=== PATIENT | female | born 1985 | race Caucasian/White ===

== ENCOUNTER 2016-12-03 12:44 | Emergency (ER) | payer SELFPAY ==
--- NOTE | 2016-12-03 13:29 | ER Document Report ---
ED Medical Screen (RME) - General Stated Complaint: BODY PAIN Notes: Patient complains of body aches, coughing, sneezing, and fever since Friday night. States her symptoms only occur at night. She denies sore throat, denies history of asthma. Patient denies nausea, vomiting or diarrhea. I have greeted and performed a rapid initial assessment of this patient. A comprehensive ED assessment and evaluation of the patient, analysis of test results and completion of the medical decision making process will be conducted by additional ED providers. TRAVEL OUTSIDE OF THE [place] IN LAST 30 DAYS: No - Related Data Allergies/Adverse Reactions: No Known Allergies Allergy (Verified 12/03/16 13:26) Past Medical History Psychiatric Medical History: Reports: Hx Depression - Immunizations Hx Diphtheria, Pertussis, Tetanus Vaccination: Yes Physical Exam - Vital signs Vitals: Temp Pulse Resp BP Pulse Ox 98.6 F 86 20 108/65 100 12/03/16 13:23 12/03/16 13:23 12/03/16 13:23 12/03/16 13:23 12/03/16 13:23 - Respiratory Respiratory status: No respiratory distress Breath sounds: Normal Course - Vital Signs Vital signs: Temp Pulse Resp BP Pulse Ox 98.6 F 86 20 108/65 100 12/03/16 13:23 12/03/16 13:23 12/03/16 13:23 12/03/16 13:23 12/03/16 13:23
--- NOTE | 2016-12-03 15:08 | ER Document Report ---
ED Flu Like - General Chief Complaint: Flu Symptoms Stated Complaint: BODY PAIN Time seen by provider: 15:02 Mode of Arrival: Ambulatory Information source: Patient Notes: 31-year-old female no medical problems presents to the emergency room with cough , congestion, muscle aches and pains, sneezing and low-grade fever. Patient has been seen having symptoms for the last few days. TRAVEL OUTSIDE OF THE [place] IN LAST 30 DAYS: No - HPI Onset: Last week Timing/Duration: Constant Quality of pain: No pain Severity: None Pain Level: Denies CO exposure: No Associated symptoms: Nonproductive cough, Fever. denies: Earache, Shortness of breath Similar symptoms previously: No Recently seen / treated by doctor: No - Related Data Allergies/Adverse Reactions: No Known Allergies Allergy (Verified 12/03/16 13:26) Past Medical History - General Information source: Patient - Social History Smoking Status: Never Smoker Cigarette use (# per day): No Chew tobacco use (# tins/day): No Frequency of alcohol use: Occasional Drug Abuse: None Lives with: Family Family History: Reviewed & Not Pertinent Patient has suicidal ideation: No Patient has homicidal ideation: No - Medical History Medical History: Negative Renal/ Medical History: Denies: Hx Peritoneal Dialysis Psychiatric Medical History: Reports: Hx Depression Surgical Hx: Other - Noncontributory - Immunizations Hx Diphtheria, Pertussis, Tetanus Vaccination: Yes Review of Systems - Review of Systems Notes: Review of systems: Constitutional: Positive for fever, chills, muscle aches EENT: Denies ear pain, sinus tenderness, throat pain, throat swelling. Cardiovascular: Denies chest pain, palpitations, dyspnea or edema. Respiratory: See H&P Abdomen: Denies abdominal pain, nausea, vomiting, diarrhea. Denies BRBPR or melena. Genitourinary: Denies dysuria, pyuria, hematuria, flank pain. Musculoskeletal: See H&P Neurologic: Denies headache, photophobia, neck stiffness, weakness. Denies loss of bowel or bladder function. Denies saddle anesthesia. Skin: Denies rash, lesions. Physical Exam - Vital signs Vitals: Temp Pulse Resp BP Pulse Ox 98.6 F 86 20 108/65 100 12/03/16 13:23 12/03/16 13:23 12/03/16 13:23 12/03/16 13:23 12/03/16 13:23 Notes: Physical exam: GENERAL: 81-year-old female, alert and oriented 3, no acute distress. HEAD: Atraumatic, normocephalic. EYES: Pupils equal round and reactive to light, extraocular movements intact, sclera anicteric, conjunctiva are normal. ENT: TMs normal, nares patent, oropharynx clear without exudates, she does have prominent tonsils but there is no erythema or exudates. She is not having any pain in her throat. Moist mucous membranes. NECK: Normal range of motion, supple without lymphadenopathy or JVD. LUNGS: Breath sounds clear to auscultation bilaterally and equal. No wheezes rales or rhonchi. HEART: Regular rate and rhythm without murmurs, rubs or gallops. ABDOMEN: Soft, normoactive bowel sounds. No tenderness to palpation. No guarding, no rebound. No masses appreciated. EXTREMITIES: Normal range of motion, no pitting or edema. No clubbing or cyanosis. NEUROLOGICAL: Cranial nerves II through XII grossly intact. Normal speech, normal gait. PSYCH: Normal mood, normal affect. SKIN: Warm, Dry, normal turgor, no rashes or lesions noted. Course - Vital Signs Vital signs: Temp Pulse Resp BP Pulse Ox 98.9 F 80 18 110/65 100 12/03/16 15:30 12/03/16 15:30 12/03/16 15:30 12/03/16 15:30 12/03/16 15:30 Discharge - Discharge Clinical Impression: influenza Condition: Stable Disposition: HOME, SELF-CARE Instructions: Acetaminophen Additional Instructions: Your test was positive for influenza B Influenza is a virus and the treatment is supportive. This means plenty of rest , drink plenty of fluids, Tylenol and Advil are okay. To keep the sinuses clear, I'll recommend simply saline twice daily for the next week. Mucinex to keep the secretions thin so that the sinuses will drain completely to allow them to heal. Return to the emergency room for any shortness of breath, worsening pain or any concerns he getting worse. Forms: Return to Work
[2016-12-03 15:47] VITALS: BP 110/65
== END 2016-12-03 15:30 | disposition home or self-care (01) ==
LOC: ER 12:44
DX: J11.1 Influenza due to unidentified influenza virus with other respiratory manifestations (principal); R05 Cough; M79.1 Myalgia; R50.9 Fever, unspecified; R06.7 Sneezing
CPT/HCPCS: 87804; 99283

== ENCOUNTER 2017-05-13 10:14 | Emergency (ER) | payer SELFPAY ==
[2017-05-13] MEDS ORDERED: IPRATROPIUM/ALBUTEROL 0.5-2.5 MG/3 ML AMPUL NEB ONE ×3 (10:53→12:07)
--- NOTE | 2017-05-13 11:20 | ER Document Report ---
ED General - General Chief Complaint: Chest Congestion Stated Complaint: COUGH Time Seen by Provider: 05/13/17 10:49 Mode of Arrival: Ambulatory Information source: Patient Notes: 31-year-old female presents with complaints of 2 week duration of cough productive with wheezing shortness of breath. Patient denies a history of asthma or COPD. Notes intermittent fevers. Patient notes symptoms have not improved with [id number] medication. TRAVEL OUTSIDE OF THE [place] IN LAST 30 DAYS: No - HPI Onset: Other Onset/Duration: Persistent, Worse Quality of pain: No pain Severity: Mild Pain Level: 1 Associated symptoms: Productive cough, Shortness of breath Exacerbated by: Walking, Coughing, Deep breathing Relieved by: Denies Similar symptoms previously: No Recently seen / treated by doctor: No - Related Data Allergies/Adverse Reactions: No Known Allergies Allergy (Verified 05/13/17 10:29) Past Medical History - Social History Smoking Status: Never Smoker Cigarette use (# per day): No Chew tobacco use (# tins/day): No Smoking Education Provided: No Family History: Reviewed & Not Pertinent Patient has suicidal ideation: No Renal/ Medical History: Denies: Hx Peritoneal Dialysis Psychiatric Medical History: Reports: Hx Depression - Immunizations Hx Diphtheria, Pertussis, Tetanus Vaccination: Yes Review of Systems - Review of Systems Notes: REVIEW OF SYSTEMS: CONSTITUTIONAL : Denies fever, chills, or sweats. Denies recent illness. EENT: Denies eye, ear, throat, or mouth pain or symptoms. Denies nasal or sinus congestion or discharge. Denies throat, tongue, or mouth swelling or difficulty swallowing. CARDIOVASCULAR: Denies chest pain. Denies palpitations or racing or irregular heart beat. Denies ankle edema. RESPIRATORY: Admits to productive cough shortness of breath GASTROINTESTINAL: Denies abdominal pain or distention. Denies nausea, vomiting , or diarrhea. Denies blood in vomitus, stools, or per rectum. Denies black, tarry stools. Denies constipation. GENITOURINARY: Denies difficulty urinating, painful urination, burning, frequency, blood in urine, or discharge. FEMALE GENITOURINARY: Denies vaginal bleeding, heavy or abnormal periods, irregular periods. Denies vaginal discharge or odor. MUSCULOSKELETAL: Denies back or neck pain or stiffness. Denies joint pain or swelling. SKIN: Denies rash, lesions or sores. HEMATOLOGIC : Denies easy bruising or bleeding. LYMPHATIC: Denies swollen, enlarged glands. NEUROLOGICAL: Denies confusion or altered mental status. Denies passing out or loss of consciousness. Denies dizziness or lightheadedness. Denies headache. Denies weakness or paralysis or loss of use of either side. Denies problems with gait or speech. Denies sensory loss, numbness, or tingling. Denies seizures. PSYCHIATRIC: Denies anxiety or stress. Denies depression, suicidal ideation, or homicidal ideation. ALL OTHER SYSTEMS REVIEWED AND NEGATIVE. PHYSICAL EXAMINATION: GENERAL: Well-appearing, well-nourished and in no acute distress. HEAD: Atraumatic, normocephalic. EYES: Pupils equal round and reactive to light, extraocular movements intact, conjunctiva are normal. ENT: Nares patent, oropharynx clear without exudates. Moist mucous membranes. NECK: Normal range of motion, supple without lymphadenopathy LUNGS: Coarse wheezing all throughout no respiratory distress HEART: Regular rate and rhythm without murmurs ABDOMEN: Soft, nontender, nondistended abdomen. No guarding, no rebound. No masses appreciated. Female : deferred Musculoskeletal: Normal range of motion, no pitting or edema. No cyanosis. NEUROLOGICAL: Cranial nerves grossly intact. Normal speech, normal gait. Normal sensory, motor exams PSYCH: Normal mood, normal affect. SKIN: Warm, Dry, normal turgor, no rashes or lesions noted. Dictation was performed using [employer] voice recognition software Physical Exam - Vital signs Vitals: Temp Pulse Resp BP Pulse Ox 98.7 F 64 16 138/84 H 97 05/13/17 10:31 05/13/17 10:31 05/13/17 10:31 05/13/17 10:31 05/13/17 10:31 Course - Re-evaluation Re-evalutation: 05/13/17 14:24 Patient is able to speak in complete sentences has no life-threatening issues noted however is wheezing significantly, breathing treatments improved her symptoms. She will discharged home with antibiotics for occult pneumonia even though x-ray looks well as well as prednisone and albuterol. Very strict return precautions provided to the patient After performing a Medical Screening Examination, I estimate there is LOW risk for ACUTE CORONARY SYNDROME, RESPIRATORY FAILURE, SEPSIS OR MENINGITIS, thus I consider the discharge disposition reasonable. I have reevaluated this patient multiple times and no significant life threatening changes are noted. The patient and I have discussed the diagnosis and risks, and we agree with discharging home with close follow-up. We also discussed returning to the Emergency Department immediately if new or worsening symptoms occur. We have discussed the symptoms which are most concerning (e.g., changing or worsening pain, trouble swallowing or breathing, neck stiffness, fever) that necessitate immediate return. - Vital Signs Vital signs: Temp Pulse Resp BP Pulse Ox 98.9 F 78 16 132/78 H 99 05/13/17 12:45 05/13/17 12:45 05/13/17 10:31 05/13/17 12:45 05/13/17 12:45 - Diagnostic Test Radiology reviewed: Image reviewed, Reports reviewed - No acute abnormality Discharge - Discharge Clinical Impression: Wheezing Pneumonia Qualifiers: Pneumonia type: due to unspecified organism Laterality: unspecified laterality Lung location: unspecified part of lung Qualified Code(s): J18.9 - Pneumonia, unspecified organism Condition: Stable Disposition: HOME, SELF-CARE Instructions: Bronchospasm ([facility]), Pneumonia ([facility]) Additional Instructions: Follow up with your physician tomorrow for further care or return to the ED IMMEDIATELY if symptoms worsen or new concerns occur. If you cannot afford to follow up with your primary care physician a list of low cost clinics have been provided at the end of your discharge papers as well. Prescriptions: Azithromycin 250 mg PO ASDIR PRN #6 tablet PRN Reason: Prednisone 60 mg PO DAILY 5 Days tablet Forms: Return to Work
--- NOTE | 2017-05-13 11:27 | RADIOLOGY REPORT (SQ) ---
EXAM DESCRIPTION: CHEST PA/LAT COMPLETED DATE/TIME: 05/13/2017 11:20 am REASON FOR STUDY: cough productive wheezing COMPARISON: None. EXAM PARAMETERS: NUMBER OF VIEWS: two views TECHNIQUE: Digital Frontal and Lateral radiographic views of the chest acquired. RADIATION DOSE: NA LIMITATIONS: none FINDINGS: LUNGS AND PLEURA: No opacities, masses or pneumothorax. No pleural effusion. MEDIASTINUM AND HILAR STRUCTURES: No masses or contour abnormalities. HEART AND VASCULAR STRUCTURES: Heart normal size. No evidence for failure. BONES: No acute findings. HARDWARE: None in the chest. OTHER: No other significant finding. IMPRESSION: NO SIGNIFICANT RADIOGRAPHIC FINDING IN THE CHEST. TECHNICAL DOCUMENTATION: JOB ID: [id number] [employer]- All Rights Reserved
[2017-05-13] MEDS ORDERED: DEXAMETHASONE SOD PHOS INJ 10 MG/1 ML VIAL IM ONE (12:07)
[2017-05-13] MEDS ORDERED: ALBUTEROL SULFATE HFA (90 MCG/PUFF) 200 PUFF/8.5 GM MDI IH ONE (12:09)
[2017-05-13 13:15] VITALS: BP 132/78
== END 2017-05-13 12:45 | disposition home or self-care (01) ==
LOC: ER 10:14
DX: J18.9 Pneumonia, unspecified organism (principal); R06.2 Wheezing
CPT/HCPCS: 99285; 71020; J1100; J3490; J7620

== ENCOUNTER 2017-10-26 17:41 | Emergency (ER) | payer SELFPAY ==
--- NOTE | 2017-10-26 19:43 | ER Document Report ---
HPI - HPI Patient complains to provider of: Flulike symptoms Onset: This afternoon Onset/Duration: Gradual Quality of pain: Achy Pain Level: 2 Context: Patient states that she developed generalized weakness, cough, sore throat, nausea and body aches. Patient states that last year when she had influenza that this is just how her symptoms started. Patient is concerned about influenza and strep tonight. Associated Symptoms: Body/muscle aches, Nonproductive cough, Headache, Nausea, Sore throat Exacerbated by: Denies Relieved by: Denies Similar symptoms previously: Yes Recently seen / treated by doctor: No - ROS ROS below otherwise negative: Yes Systems Reviewed and Negative: Yes All other systems reviewed and negative - CONSTITUTIONAL Constitutional: REPORTS: Chills - EENT EENT: REPORTS: Sore Throat, Congestion - NEURO Neurology: DENIES: Headache - CARDIOVASCULAR Cardiovascular: DENIES: Chest pain - RESPIRATORY Respiratory: REPORTS: Coughing - GASTROINTESTINAL Gastrointestinal: REPORTS: Nausea. DENIES: Patient vomiting - REPRODUCTIVE Reproductive: DENIES: : - DERM Skin Color: Normal Skin Problems: None Past Medical History - General Information source: Patient - Social History Smoking Status: Current Every Day Smoker Frequency of alcohol use: Occasional Drug Abuse: None Occupation: Medical office Family History: Reviewed & Not Pertinent Renal/ Medical History: Denies: Hx Peritoneal Dialysis Psychiatric Medical History: Reports: Hx Anxiety, Hx Depression Surgical Hx: Negative - Immunizations Hx Diphtheria, Pertussis, Tetanus Vaccination: Yes Vertical Provider Document - CONSTITUTIONAL Agree With Documented VS: Yes Exam Limitations: No Limitations General Appearance: WD/WN, No Apparent Distress - INFECTION CONTROL TRAVEL OUTSIDE OF THE [place] IN LAST 30 DAYS: No - HEENT HEENT: Atraumatic, Normocephalic, Pharyngeal Tenderness, Pharyngeal Erythema. negative: Pharyngeal Exudate - NECK Neck: Normal Inspection, Supple. negative: Lymphadenopathy-Left, Lymphadenopathy-Right - RESPIRATORY Respiratory: Breath Sounds Normal, No Respiratory Distress. negative: Chest Non -Tender, Rales, Rhonchi, Wheezing O2 Sat by Pulse Oximetry: 97 - CARDIOVASCULAR Cardiovascular: Regular Rate, Regular Rhythm, No Murmur - GI/ABDOMEN Gastrointestinal: Abdomen Soft, Abdomen Non-Tender - BACK Back: Normal Inspection. negative: CVA Tenderness-Right, CVA Tenderness-Left - MUSCULOSKELETAL/EXTREMETIES Musculoskeletal/Extremeties: MARGARITA BOUCHER - NEURO Level of Consciousness: Awake, Alert, Appropriate Motor/Sensory: No Motor Deficit - DERM Integumentary: Warm, Dry, No Rash Course - Re-evaluation Re-evalutation: 10/26/17 20:41 Patient presents with symptoms concerning for viral illness. Patient is concerned about influenza and would like treatment with Tamiflu. Discussed worsening signs or symptoms of patient should return immediately for. Discussed efficacy and side effect profile medication. - Vital Signs Vital signs: Temp Pulse Resp BP Pulse Ox 98.4 F 78 18 127/83 H 97 10/26/17 17:56 10/26/17 17:56 10/26/17 17:56 10/26/17 17:56 10/26/17 17:56 - Laboratory Laboratory results interpreted by me: 10/26/17 20:41 Labs- Entire Visit 10/26/17 19:40 Group A Strep Rapid NEGATIVE Discharge - Discharge Clinical Impression: Flu-like symptoms Condition: Stable Disposition: HOME, SELF-CARE Instructions: Acetaminophen, Antinausea Medication ([facility]), Influenza ([facility]) Additional Instructions: Return immediately for any new or worsening symptoms Followup with your primary care provider, call tomorrow to make a followup appointment Prescriptions: Naproxen [Naprosyn 250 Nmg Tablet] 1 tab PO BID #14 tablet Ondansetron HCl [Zofran 4 mg Tablet] 1 - 2 tab PO Q6 PRN #10 tablet PRN Reason: Oseltamivir Phosphate [Tamiflu 75 mg Capsule] 75 mg PO BID #10 capsule Forms: Return to Work Referrals: [facility] [Provider Group] - Follow up as needed
[2017-10-26] MEDS ORDERED: ONDANSETRON 4 MG TAB.RAPDIS PO ONE (20:41)
[2017-10-26] MEDS ORDERED: IBUPROFEN 800 MG TABLET PO ONE (20:41)
[2017-10-26 20:54] VITALS: BP 125/80
== END 2017-10-26 20:53 | disposition home or self-care (01) ==
LOC: ER 17:41
DX: R53.1 Weakness (principal); R05 Cough; J02.9 Acute pharyngitis, unspecified; R11.0 Nausea; M79.1 Myalgia; R51 Headache; F17.200 Nicotine dependence, unspecified, uncomplicated
CPT/HCPCS: 99283; 87070; 87880; S0119